=== PATIENT | male | born 1960 | race Hispanic/Latino ===

== ENCOUNTER 2022-10-10 12:49 | Emergency (ER) | payer OTHER ==
[~2022-10-10] VITALS: Ht 172.7 cm; Wt 74.8 kg
[2022-10-10] MEDS ORDERED: IBUPROFEN 600 MG TABLET PO ONE (14:00)
[2022-10-10] MEDS ORDERED: HYDROCODONE/ACETAMINOPHEN 5/325 MG TAB PO ONE (14:00)
[2022-10-10] MEDS ORDERED: PREDNISONE 20 MG TABLET PO ONE (14:00)
[2022-10-10] MEDS ORDERED: DIAZEPAM 5 MG TABLET PO ONE (14:00)
[2022-10-10] MEDS ORDERED: CEPH500B PO (14:25)
[2022-10-10] MEDS ORDERED: PERM60CR4 TP (14:25)
[2022-10-10] MEDS ORDERED: METH-811 PO (14:25)
[2022-10-10] MEDS ORDERED: PRED20TA3 PO (14:25)
[2022-10-10] MEDS ORDERED: IBUP-2070 PO (14:25)
[2022-10-10 15:17] VITALS: BP 135/77
[2022-10-10 15:31] LABS: APPEARANCE,URINE CLEAR (CLEAR); BILIRUBIN,URINE NEGATIVE (NEGATIVE); COLOR,URINE YELLOW (YELLOW); GLUCOSE, URINE (UA) NEGATIVE (NEGATIVE); KETONES,URINE 5 mg/dL (NEGATIVE); LEUKOCYTE ESTERASE ,URINE NEGATIVE Leu/uL (NEGATIVE); NITRATE,URINE NEGATIVE (NEGATIVE); OCCULT BLOOD,URINE NEGATIVE (NEGATIVE); PROTEIN,URINE 30 mg/dL (NEGATIVE); UROBILINOGEN,URINE 0.2 mg/dL (0.2-1.0)
[2022-10-10 15:34] LABS: BACTERIA,URINE RARE /HPF (None Seen); MUCUS,URINE FEW LPF (None Seen); SQUAMOUS EPITHELIAL CELL,UR FEW /HPF (0-2); WBC,URINE 0-1 /HPF (0-1)
== END 2022-10-10 15:46 | disposition home or self-care (01) ==
LOC: EDH 12:49
DX: S39.012A Strain of muscle, fascia and tendon of lower back, initial encounter (principal); S91.101A Unspecified open wound of right great toe without damage to nail, initial encounter; B86 Scabies; E78.00 Pure hypercholesterolemia, unspecified; Z79.899 Other long term (current) drug therapy; Z98.890 Other specified postprocedural states; X58.XXXA Exposure to other specified factors, initial encounter; Y93.89 Activity, other specified; Y92.89 Other specified places as the place of occurrence of the external cause; Y99.8 Other external cause status
CPT/HCPCS: 72100; 81001